=== PATIENT | female | born 1980 | race African-American/Black ===

== ENCOUNTER 2021-12-12 14:54 | Emergency (ER) | payer OTHER ==
[2021-12-12] MEDS ORDERED: HYDROcodone/Acetaminophen 7.5/325 mg Tablet ONE (15:48)
== END 2021-12-12 16:12 | disposition home or self-care (01) ==
LOC: CSHERS 14:54
DX: M25.562 Pain in left knee (principal); K21.9 Gastro-esophageal reflux disease without esophagitis; E03.9 Hypothyroidism, unspecified; I10 Essential (primary) hypertension; F17.210 Nicotine dependence, cigarettes, uncomplicated; J45.909 Unspecified asthma, uncomplicated

== ENCOUNTER 2022-04-17 11:50 | Emergency (ER) | payer OTHER ==
[2022-04-17] MEDS ORDERED: traMADol HCl 50 MG TAB ONE (12:47)
== END 2022-04-17 12:05 | disposition home or self-care (01) ==
LOC: CSHERS 11:50
DX: M25.562 Pain in left knee (principal); K21.9 Gastro-esophageal reflux disease without esophagitis; E03.9 Hypothyroidism, unspecified; I10 Essential (primary) hypertension; F17.210 Nicotine dependence, cigarettes, uncomplicated; M19.90 Unspecified osteoarthritis, unspecified site
CPT/HCPCS: 99283